=== PATIENT | female | born 1960 | race Caucasian/White ===

== ENCOUNTER 2017-08-30 09:18 | Outpatient (CLI) | payer BC ==
[2017-08-30] MEDS: CLINDAMYCIN 300 MG in APPROPRIATE DILUENT 1 EA IV (09:56)
== END 2017-08-30 10:30 | disposition home or self-care (01) ==
LOC: M INFU 09:18
DX: Z95.2 Presence of prosthetic heart valve (principal); Z88.0 Allergy status to penicillin; Z88.2 Allergy status to sulfonamides; Z88.8 Allergy status to other drugs, medicaments and biological substances; Z79.01 Long term (current) use of anticoagulants; Z79.899 Other long term (current) drug therapy
CPT/HCPCS: 96365

== ENCOUNTER 2017-09-18 07:23 | Outpatient (CLI) | payer BC ==
[2017-09-18] MEDS: CLINDAMYCIN 300 MG in APPROPRIATE DILUENT 1 EA IV (08:04)
== END 2017-09-18 08:45 | disposition home or self-care (01) ==
LOC: M INFU 07:23
DX: Z41.8 Encounter for other procedures for purposes other than remedying health state (principal); Z95.5 Presence of coronary angioplasty implant and graft; Z95.2 Presence of prosthetic heart valve; I10 Essential (primary) hypertension; G47.33 Obstructive sleep apnea (adult) (pediatric); Z87.891 Personal history of nicotine dependence; Z79.899 Other long term (current) drug therapy; Z79.01 Long term (current) use of anticoagulants; Z88.0 Allergy status to penicillin; Z88.2 Allergy status to sulfonamides; Z88.8 Allergy status to other drugs, medicaments and biological substances
CPT/HCPCS: 96365

== ENCOUNTER → 2019-06-16 | Outpatient (CLI) | payer BC ==
[~2019-06-16] MED LIST: ATOR1TAB19 PO; COUM1TAB17 PO; CYMB60CA3 PO; IBUP600T OR; MULT1TAB8 PO; TOPR25TA PO; TUMS500C OR; VITA100067 PO
[2019-06-16 14:22] LABS: BASO % 0.8 % (0.0-1.0); EOS # 0.4 10^3/uL (0.0-0.5); EOS % 7.6 % (0.0-3.0); HEMATOCRIT 33.9 % (36.0-47.0); HEMOGLOBIN 10.4 g/dl (12.0-15.5); LYMPH # 1.7 10^3/uL (1.5-5.0); MEAN CORPUSCULAR HEMOGLOBIN 29.1 pg (27.0-33.0); MEAN CORPUSCULAR HGB CONC 30.7 g/dl (32.0-36.5); MEAN CORPUSCULAR VOLUME 94.7 fl (80.0-96.0); MONO # 0.4 10^3/uL (0.0-0.8); MONO % 7.8 % (0.0-5.0); NEUTROPHILS # 2.5 10^3/uL (1.5-8.5); NEUTROPHILS % 49.6 % (36.0-66.0); PLATELET COUNT, AUTOMATED 308 10^3/uL (150-450); RED BLOOD COUNT 3.58 10^6/uL (4.00-5.40)
[2019-06-16 14:38] LABS: ALBUMIN 3.6 GM/DL (3.2-5.2); ALT/SGPT 19 U/L (12-78); BILIRUBIN,TOTAL 0.3 MG/DL (0.2-1.0); BLOOD UREA NITROGEN 22 MG/DL (7-18); CALCIUM LEVEL 9.2 MG/DL (8.5-10.1); CARBON DIOXIDE LEVEL 30 MEQ/L (21-32); CHLORIDE LEVEL 111 MEQ/L (98-107); CREATININE FOR GFR 0.71 MG/DL (0.55-1.30); FERRITIN 4 NG/ML (8-252); FREE T4 0.77 NG/DL (0.76-1.46); GLOMERULAR FILTRATION RATE > 60.0 (>51); GLUCOSE, FASTING 91 MG/DL (70-100); IRON (FE) 24 UG/DL (50-170); PERCENT SATURATION 5.8 % (13.2-45.0); POTASSIUM SERUM 4.9 MEQ/L (3.5-5.1); SODIUM LEVEL 144 MEQ/L (136-145); TOTAL 25(OH) VITAMIN D 39.9 NG/ML (30.0-100.0); TOTAL IRON BINDING CAPACITY 413 UG/DL (250-450); TOTAL PROTEIN 6.4 GM/DL (6.4-8.2)
[2019-06-16 15:23] LABS: ERYTHROCYTE SEDIMENTATION RATE 13 mm/hr (0-30)
[2019-06-16 15:50] LABS: VITAMIN B12 LEVEL 609 PG/ML (247-911)
[2019-06-18 00:06] LABS: Lyme Disease IgG/IgM Antibodie <0.91 ISR (0.00-0.90); Lyme Disease IgM Ab Quantitati <0.80 index (0.00-0.79)
== END ==
LOC: M SMT 09:20
PROVIDERS: ATTEND Family Medicine
DX: R53.83 Other fatigue (principal); Z98.84 Bariatric surgery status; M25.562 Pain in left knee

== ENCOUNTER 2019-06-30 07:55 | Outpatient (CLI) | payer BC ==
[2019-06-30] VITALS (7 sets, daily range): BP systolic 98–113; BP diastolic 54–70
[~2019-06-30] VITALS: Ht 160 cm; Wt 60.0 kg
[~2019-06-30 07:55] MED LIST changes: -IRON1TAB2 PO; -LEXA5TAB13 PO; -REQU5TAB PO
[2019-06-30] MEDS ORDERED: IRON SUCROSE 500 MG in NS 250 ML OVER 4 HRS IV ONE (08:30)
[2019-06-30] MEDS ORDERED: REQU5TAB PO (08:41)
[2019-06-30] MEDS ORDERED: LEXA5TAB13 PO (08:41)
[2019-06-30] MEDS ORDERED: IRON1TAB2 PO (08:41)
== END 2019-06-30 13:00 | disposition home or self-care (01) ==
LOC: M INFU 07:55
PROVIDERS: ATTEND Family Medicine
DX: D50.9 Iron deficiency anemia, unspecified (principal)
CPT/HCPCS: 96365; 96366; J1756

== ENCOUNTER → 2019-06-30 | Outpatient (REF) | payer BC ==
[~2019-06-30] MED LIST changes: +IRON1TAB2 PO; +LEXA5TAB13 PO; +REQU5TAB PO
== END ==
LOC: M SFHCLERA 15:31
PROVIDERS: ATTEND Physician Assistant
DX: M54.5 Low back pain (principal)

== ENCOUNTER → 2019-07-01 | Outpatient (REF) | payer BC ==
[~2019-07-01] MED LIST changes: +IRON1TAB2 PO; +LEXA5TAB13 PO; +REQU5TAB PO
== END ==
LOC: M LAB REF 16:45
PROVIDERS: ATTEND Family Medicine
DX: M54.5 Low back pain (principal)

== ENCOUNTER → 2019-09-25 | Outpatient (CLI) | payer BC ==
--- NOTE | 2019-09-25 10:43 | REP ---
CERVICAL SPINE SERIES: Eight views. HISTORY: Neck pain. Comparison CT images October 05, 2014. FINDINGS: There is straightening of the normal cervical lordosis. Discogenic spurring is seen along with disc space narrowing at the C4-5. C5-6 and C6-7 levels unchanged from the 2015 prior study. Flexion/extension lateral views show no subluxation or instability. Vertebral body heights are preserved. Prevertebral soft tissues are unremarkable. Oblique radiographs demonstrate uncovertebral spurring producing neural foraminal encroachment on the right at C5-6 and C6-7 and on the left at C5-6 and C6-7 as well. There are mild facet hypertrophy changes visible on the AP view in the mid cervical spine. Open-mouth odontoid view is unremarkable. A pacemaker is noted incidentally. IMPRESSION: Degenerative spondylosis changes with mild bilateral uncovertebral spurring producing foraminal encroachment. No acute abnormality. Electronically Signed by Junior Dominguez MD 09/25/2019 10:58 A
== END ==
LOC: M LRY 09:46
PROVIDERS: ATTEND Physician Assistant
DX: M48.02 Spinal stenosis, cervical region (principal); M25.78 Osteophyte, vertebrae; Z95.0 Presence of cardiac pacemaker

== ENCOUNTER 2020-05-20 17:33 | Inpatient (IN) | payer BC ==
[~2020-05-20] VITALS: Ht 160 cm; Wt 56.4 kg
[2020-05-20] MEDS ORDERED: ESTR0.1C5 (17:49)
[2020-05-20] MEDS ORDERED: SUCR1ORA2 PO (17:49)
[2020-05-20] MEDS ORDERED: BUPR150T3 PO (17:49)
[2020-05-20] MEDS ORDERED: OMEP-218 PO (17:49)
[2020-05-20] MEDS ORDERED: GABA-843 PO (17:49)
[2020-05-20 18:17] LABS: BASO % 0.7 % (0.0-1.0); EOS # 0.3 10^3/uL (0.0-0.5); EOS % 6.9 % (0.0-3.0); HEMATOCRIT 24.6 % (36.0-47.0); LYMPH # 1.6 10^3/uL (1.5-5.0); LYMPH % 34.9 % (24.0-44.0); MEAN CORPUSCULAR HEMOGLOBIN 21.5 pg (27.0-33.0); MEAN CORPUSCULAR HGB CONC 28.5 g/dl (32.0-36.5); MEAN CORPUSCULAR VOLUME 75.7 fl (80.0-96.0); MONO # 0.3 10^3/uL (0.0-0.8); MONO % 6.7 % (0.0-5.0); NEUTROPHILS # 2.3 10^3/uL (1.5-8.5); NEUTROPHILS % 50.6 % (36.0-66.0); PLATELET COUNT, AUTOMATED 343 10^3/uL (150-450); RED BLOOD COUNT 3.25 10^6/uL (4.00-5.40); WHITE BLOOD COUNT 4.5 10^3/uL (4.0-10.0)
[2020-05-20 18:27] LABS: INR 2.16; PROTHROMBIN TIME 24.6 SECONDS (12.5-14.3)
[2020-05-20 18:38] LABS: ALBUMIN 3.6 GM/DL (3.2-5.2); ALT/SGPT 22 U/L (12-78); BILIRUBIN,DIRECT < 0.1 MG/DL (0.0-0.2); BILIRUBIN,TOTAL 0.2 MG/DL (0.2-1.0); LIPASE 115 U/L (73-393); TOTAL PROTEIN 6.3 GM/DL (6.4-8.2)
[2020-05-20] MEDS: GASTROGRAFIN SOLUTION 30ML PO SCH ×2 (19:07→19:54)
[2020-05-20] MEDS ORDERED: SUPE5000 PO (20:07)
[2020-05-20] MEDS ORDERED: [UNRECOGNIZED DRUG - CODE] PO (20:07)
[2020-05-20] MEDS ORDERED: CYAN500T3 PO (20:07)
[2020-05-20] MEDS ORDERED: VIAC1CHW PO (20:07)
[2020-05-20] MEDS ORDERED: WARF4TAB52 PO (20:09)
[2020-05-20] MEDS ORDERED: WARF-22 PO (20:10)
[2020-05-20] MEDS ORDERED: WARF-23 PO (20:10)
[2020-05-20] MEDS ORDERED: ISOVUE-370 76% 100ML VIAL As Ordered ONE (20:19)
--- NOTE | 2020-05-20 20:53 | REPVR ---
PROCEDURE INFORMATION: Exam: CT Abdomen And Pelvis With Contrast Exam date and time: 05/20/2020 8:25 PM Age: 59 years old Clinical indication: Abdominal pain; Generalized; Additional info: Gen abd pain TECHNIQUE: Imaging protocol: Computed tomography of the abdomen and pelvis with intravenous contrast. Radiation optimization: All CT scans at this facility use at least one of these dose optimization techniques: automated exposure control; mA and/or kV adjustment per patient size (includes targeted exams where dose is matched to clinical indication); or iterative reconstruction. Contrast material: ISOVUE 370; Contrast volume: 100 ml; Contrast route: INTRAVENOUS (IV); COMPARISON: No relevant prior studies available. FINDINGS: Liver: There is a diffuse decrease in hepatic parenchymal density, consistent with steatosis. Gallbladder and bile ducts: There has been a cholecystectomy. Pancreas: Normal. No ductal dilation. Spleen: Normal. No splenomegaly. Adrenals: Normal. No mass. Kidneys and ureters: Normal. No hydronephrosis. Stomach and bowel: This patient is status post gastric bypass surgery. Appendix: No evidence of appendicitis. Intraperitoneal space: Unremarkable. No free air. No significant fluid collection. Vasculature: The aortoiliac vessels demonstrate mild atherosclerotic calcification. Lymph nodes: Unremarkable. No enlarged lymph nodes. Urinary bladder: Unremarkable as visualized. Reproductive: There has been a hysterectomy. Bones/joints: Shallow dextroscoliosis, possibly positional. Soft tissues: Unremarkable. IMPRESSION: 1. There is a diffuse decrease in hepatic parenchymal density, consistent with steatosis. 2. There has been a cholecystectomy. 3. This patient is status post gastric bypass surgery. 4. There has been a hysterectomy. 5. No acute findings. Electronically signed by: Miller Murray On 05/20/2020 20:53:06 PM
[2020-05-20] MEDS ORDERED: GABAPENTIN 300 MG CAP PO SCH (21:00)
[2020-05-20 22:59] VITALS: BP 94/56
[2020-05-20 23:05] VITALS: BP 98/62
[2020-05-20 23:20] VITALS: BP 98/69
[2020-05-20] MEDS ORDERED: WARFARIN SOD 4MG TAB PO ONE (23:45)
[2020-05-21] VITALS (8 sets, daily range): BP systolic 97–106; BP diastolic 54–67
[2020-05-21] MEDS: SUCRALFATE SUSP 1GM/10ML UD PO SCH ×6 (00:52→21:00)
[2020-05-21] MEDS: OMEPRAZOLE 20 MG CAP PO SCH ×2 (00:53→20:40)
[2020-05-21] MEDS: buPROPion **XL** TABLET 150MG (WELLBUTRIN XL) PO SCH ×2 (00:54→20:40)
[2020-05-21] MEDS: METOPROLOL SUCC *XL* 25MG TAB (TopROL *XL*) PO SCH ×2 (00:55→21:00)
[2020-05-21 01:12] LABS: IRON (FE) 12 UG/DL (50-170); PERCENT SATURATION 2.5 % (13.2-45.0); TOTAL IRON BINDING CAPACITY 479 UG/DL (250-450)
--- NOTE | 2020-05-21 02:03 | HPEPDOC ---
General Date of Admission May 20, 2020 at 22:48 Date of Service: May 20, 2020 Attending Physician: KRISTA MITCHELL DO Chief Complaint The patient is a 59-year-old female admitted with a reason for visit of Acute Anemia. History of Present Illness Pt is a 59 y/o female who presents to [facility] ER after being sent here by her PCP. Patient had routine labs done in her PCP office yesterday and was notified to report to the ER after her Hg was found to be 7.0. Pt presents with ligh theadedness. She also presents with left lower quadrant abd pain x 1 month but has gotten better. She states that the pain started out sharp and was intermittent and it goes away after a few mins on its own. She states that she has a hx of anemia and has had gastric bypass, intestinal obstruction s/p resection, and vasculitis. Denies CP, sob, fever, n/v/d, chills. 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 There is a diffuse decrease in hepatic parenchymal density, consistent with steatosis. 2. There has been a cholecystectomy. 3. This patient is status post gastric bypass surgery. 4. There has been a hysterectomy. 5. No acute findings. Home Medications Scheduled Biotin (Biotin) 5 Mg Tablet, 5,000 MCG PO DAILY, (Reported) Bupropion Hcl (Bupropion Xl) 150 Mg Tab.er.24h, 150 MG PO QHS, (Reported) Calcium Carb/Vitamin D3/Vit K1 (Viactiv 650 mg-12.5 Mcg Chew) 1 Each Tab.chew, 1 CHEW PO DAILY, (Reported) Cyanocobalamin (Vitamin B-12) (Vitamin B-12) 500 Mcg Tablet, 500 MCG PO DAILY, (Reported) Gabapentin (Gabapentin) 300 Mg Capsule, 300 MG PO QHS, (Reported) Iron/Vit C/Fructooligosacchard (Chewable Iron 30 mg Tablet) 1 Each Tab.chew, 3 CHW PO DAILY, (Reported) Metoprolol Succinate (Toprol Xl) 25 Mg Tab, 25 MG PO QHS, (Reported) Multivitamin (Multi-Vitamin Daily) 1 Tab Tab, 1 TAB PO DAILY, (Reported) Omeprazole (Omeprazole) 20 Mg Capsule.dr, 20 MG PO QHS, (Reported) Sucralfate (Sucralfate) 1 Gm/10 Ml Oral.susp, 10 ML PO ACHS, (Reported) Warfarin Sodium (Warfarin Sodium) 1 Mg Tablet, 12 MG PO 3XW, (Reported) TUES/THURS/SAT Warfarin Sodium (Warfarin Sodium) 10 Mg Tablet, 10 MG PO 4XWK, (Reported) SUN/SUN/SUN/SUN Warfarin Sodium (Warfarin Sodium) 5 Mg Tablet, 5 MG PO ONCE, (Reported) FOR ONE DOSE ON 05/20/20 Allergies Coded Allergies: Sulfa (Sulfonamide Antibiotics) (Verified Allergy, Severe, ANAPHYLAXIS, 05/20/20) Penicillins (Verified Allergy, Intermediate, HIVES, 05/20/20) cefazolin (Verified Allergy, Intermediate, blisters, 05/20/20) vancomycin (Verified Allergy, Intermediate, blisters, 05/20/20) promethazine (Verified Adverse Reaction, Intermediate, SESNSITIVE PER PATIENT, 05/20/20) ropinirole (Verified Adverse Reaction, Mild, vomiting, 05/20/20) A-FIB/CHADSVASC A-FIB History Current/History of A-Fib/PAF?: No Current PO Anticoag Therapy: Yes Review of Systems Constitutional: Reports: Weakness, Other (lightheaded); Denies: Chills, Fever, Malaise, Night Sweats ENT: Denies: Head Aches, Ear Pain Pulmonary: Denies: Cough Cardiovascular: Denies: Chest Pain, Palpitations Gastrointestinal: Reports: Abdominal Pain (Left lower abd pain x1 month but resolving now); Denies: Nausea, Vomiting Genitourinary: Denies: Dysuria, Frequency, Incontinence, Hematuria Endocrine: Denies: Polydipsia, Polyphagia, Polyuria Physical Examination General Exam: Positive: Alert, Cooperative, No Acute Distress ENT Exam: Positive: Atraumatic Neck Exam: Positive: Supple; Negative: JVD, thyromegaly, Lymphadenopathy Chest Exam: Positive: Clear to auscultation, Normal air movement; Negative: Rales, Rhonchi, Wheezing, Diminished Heart Exam: Positive: Rate Normal, Normal S1, Normal S2; Negative: Gallops, Murmurs, Rubs Telemetry: Positive: Sinus Abdomen Exam: Positive: Normal bowel sounds, Tenderness (mild tenderness in L lower quandrant) Extremity Exam: Negative: Clubbing, Cyanosis, Edema Skin Exam: Negative: Rash, Breakdown, Lesion Neuro Exam: Positive: Strength at 5/5 X4 ext Vital Signs Vital Signs Date Time Temp Pulse Resp B/P (MAP) Pulse Ox O2 Delivery O2 Flow Rate FiO2 05/21/20 01:29 97.9 61 18 102/54 97 Room Air Laboratory Data Labs 24H Laboratory Tests 2 05/20/20 18:04: Immature Granulocyte % (Auto) 0.2, Neutrophils (%) (Auto) 50.6, Lymphocytes (%) (Auto) 34.9, Monocytes (%) (Auto) 6.7H, Eosinophils (%) (Auto) 6.9H, Basophils (%) (Auto) 0.7, Neutrophils # (Auto) 2.3, Lymphocytes # (Auto) 1.6, Monocytes # (Auto) 0.3, Eosinophils # (Auto) 0.3, Basophils # (Auto) 0.0, Nucleated Red Blood Cells % (auto) 0.0, Prothrombin Time 24.6H, Prothromb Time International Ratio 2.16, Iron Level 12L, Total Iron Binding Capacity 479H, Transferrin % Saturation 2.5L, Total Bilirubin 0.2, Direct Bilirubin < 0.1, Aspartate Amino Transf (AST/SGOT) 18, Alanine Aminotransferase (ALT/SGPT) 22, Alkaline Phosphatase 107, Total Protein 6.3L, Albumin 3.6, Albumin/Globulin Ratio 1.3, Lipase 115 05/20/20 18:07: POC Glucose (Misc Panel) 90, POC Sodium (Misc Panel) 141, POC Potassium (Misc Panel) 4.0, POC Chloride (Misc Panel) 104, POC Total CO2 (Misc Panel) 25.0, POC Blood Urea Nitrogen (Misc Panel 19, POC Ionized Calcium (Misc Panel) 4.9, POC Creatinine (Misc Panel) 0.7, POC Hematocrit (Misc Panel) 25.0L CBC/BMP Laboratory Tests 05/20/20 18:04 Assessment/Plan Pt is a 59 y/o female who presents to [facility] ER after being sent here by her PCP. Patient had routine labs done in her PCP office yesterday and was notified to report to the ER after her Hg was found to be 7.0. Pt presents with lightheadedness. Admitted to obs for 1PRBC infusion and workup for anemia Plan / VTE VTE Prophylaxis Ordered?: Yes Plan Plan #Microcytic Anemia - likely Iron deficiency anemia - hx of gastric bypass and intestinal resection and vasculitis - CT abd/pelvis- wnl - iron panel pending - B12 and folate pending - Hg 7.0 on admission- 1 PRBC - last colo at 51y/o with poly removal and GI scheduled him for 5 year follow up- overdue - am team consider GI consult in am - H/H q6h - continue home iron - stool occult blood ordered pending #Restless leg syndrome - may be 2/2 to iron def anemia - continue iron - neurotin d/cd #Rheumatic fever and endocarditis s/p aortic valve placement - continue coumadin - PT INR monitoring #GERD - continue omeprazole #HTN - continue metoprolol DVT ppx: coumadin GI ppx: omeprazole Diet: 2g Na IVF: none. encourage PO intake Code: Full GME ATTESTATION GME ATTESTATION My faculty preceptor for this patient encounter was physically present during the encounter and was fully available. All aspects of the patient interview, examination, medical decision making process, and medical care plan development were reviewed and approved by the faculty preceptor. The faculty preceptor is aware and concurs with the plan as stated in the body of this note and will attest to such by his/her cosignature. Payton Alvarez DO May 21, 2020 02:03
[2020-05-21 07:01] LABS: HEMATOCRIT 27.9 % (36.0-47.0); HEMOGLOBIN 8.3 g/dl (12.0-15.5); MEAN CORPUSCULAR HEMOGLOBIN 22.7 pg (27.0-33.0); MEAN CORPUSCULAR HGB CONC 29.7 g/dl (32.0-36.5); MEAN CORPUSCULAR VOLUME 76.4 fl (80.0-96.0); PLATELET COUNT, AUTOMATED 286 10^3/uL (150-450); RED BLOOD COUNT 3.65 10^6/uL (4.00-5.40); WHITE BLOOD COUNT 4.6 10^3/uL (4.0-10.0)
[2020-05-21 07:19] LABS: BLOOD UREA NITROGEN 14 MG/DL (7-18); CALCIUM LEVEL 8.4 MG/DL (8.5-10.1); CARBON DIOXIDE LEVEL 29 MEQ/L (21-32); CHLORIDE LEVEL 112 MEQ/L (98-107); CREATININE FOR GFR 0.68 MG/DL (0.55-1.30); GLOMERULAR FILTRATION RATE > 60.0 (>51); GLUCOSE, FASTING 83 MG/DL (70-100); POTASSIUM SERUM 4.5 MEQ/L (3.5-5.1); SODIUM LEVEL 144 MEQ/L (136-145)
[2020-05-21 07:24] LABS: INR 1.97; PROTHROMBIN TIME 22.8 SECONDS (12.5-14.3)
[2020-05-21] MEDS: CYANOCOBALAMIN 500 MCG TAB PO SCH (08:25)
[2020-05-21] MEDS ORDERED: FLUBLOK(EGG FREE)(QUAD)INFLUENZA VACC 0.5ML SYRINGE 18YRS & OLDER IM ONE (09:00)
[2020-05-21 10:09] LABS: VITAMIN B12 LEVEL > 2000 PG/ML (247-911)
[2020-05-21 10:19] LABS: FOLATE 19.3 NG/ML (>5.4)
--- NOTE | 2020-05-21 11:09 | IPNPDOC ---
Text Note Date of Service The patient was seen on 05/21/20. NOTE Subjective: -No acute events overnight Interim vents: -s/p 1u pRBCs Objective: Vitals: see below General: Alert, Cooperative, No Acute Distress Eyes: pale conjunctiva, anicteric, PERRLA, EOMI ENT: Atraumatic, MMM Neck: Supple, no JVD, thyromegaly or palpated lymphadenopathy Chest: Clear to auscultation, Normal air movement Heart: Rate Normal, Normal S1, Normal S2, no mrg Abdomen: mild tenderness in L lower quadrant, normoactive sounds, soft Extremity: no Edema, WWP Skin: no rash, Breakdown, Lesions Neuro: Positive: Strength at 5/5 X4 ext Assessment: Pt is a 59 y/o female who presents to [facility] ER after being sent here by her PCP. Patient had routine labs done in her PCP office yesterday and was notified to report to the ER after her Hg was found to be 7.0. Pt presents with lightheadedness. Admitted to obs for 1PRBC infusion and workup for anemia Plan: #Microcytic Anemia - Iron deficiency anemia, will check ferritin for iron stores evaluation, smear and retic - hx of gastric bypass and intestinal resection and vasculitis --> f/u B12 and folate - CT abd/pelvis- wnl - low Iron, TIBC and saturation, just ordered ferritin, retic and smear - B12 and folate pending - Hg 7.0 on admission s/p 1 PRBC with appropriate rise - last colo at 51y/o with poly removal and GI scheduled him for 5 year follow up- overdue - hold off consulting GI without michelle evidence of GIB at this time, f/u FOBT - H/H QD - continue home ferrous sulfate. Likely to end up giving some IB iron while inpatient after I check ferritin iron stores - stool occult blood ordered pending #Restless leg syndrome - Likely 2/2 to iron def anemia - continue iron #Rheumatic fever and endocarditis s/p aortic valve placement, likely contributing to RBC destruction as well, will check smear - continue coumadin - PT INR monitoring #GERD - continue omeprazole #HTN - continue metoprolol DVT ppx: coumadin GI ppx: omeprazole Diet: 2g Na Code: Full VS,Fishbone, I+O VS, Fishbone, I+O Laboratory Tests 05/20/20 18:04 05/21/20 06:45 Vital Signs Date Time Temp Pulse Resp B/P (MAP) Pulse Ox O2 Delivery O2 Flow Rate FiO2 05/21/20 06:00 98.2 63 18 98/58 (71) 97 Room Air I&O- Last 24 Hours up to 6 AM 05/21/20 06:00 Intake Total 550 ml Balance 550 ml VIN NORRIS MD May 21, 2020 09:09
[2020-05-21 11:28] LABS: FERRITIN 3 NG/ML (8-252)
[2020-05-21] MEDS ORDERED: WARFARIN SOD 5MG TAB PO SCH (17:00)
[2020-05-22] MEDS ORDERED: diphenhydrAMINE 50MG/ML VIAL (J1200) IM ONE (00:15)
[2020-05-22] MEDS ORDERED: diphenhydrAMINE 25MG CAP PO ONE (01:30)
[2020-05-22 06:00] VITALS: BP 96/48
[2020-05-22] MEDS: CYANOCOBALAMIN 500 MCG TAB PO SCH (08:04)
[2020-05-22] MEDS: SUCRALFATE SUSP 1GM/10ML UD PO SCH ×2 (08:04→12:00)
[2020-05-22 08:42] LABS: BASO % 0.8 % (0.0-1.0); EOS # 0.4 10^3/uL (0.0-0.5); EOS % 8.1 % (0.0-3.0); HEMATOCRIT 29.4 % (36.0-47.0); HEMOGLOBIN 8.5 g/dl (12.0-15.5); LYMPH % 21.2 % (24.0-44.0); MEAN CORPUSCULAR HEMOGLOBIN 22.1 pg (27.0-33.0); MEAN CORPUSCULAR HGB CONC 28.9 g/dl (32.0-36.5); MEAN CORPUSCULAR VOLUME 76.4 fl (80.0-96.0); MONO # 0.4 10^3/uL (0.0-0.8); MONO % 7.9 % (0.0-5.0); NEUTROPHILS % 61.6 % (36.0-66.0); PLATELET COUNT, AUTOMATED 300 10^3/uL (150-450); RED BLOOD COUNT 3.85 10^6/uL (4.00-5.40); WHITE BLOOD COUNT 4.8 10^3/uL (4.0-10.0)
[2020-05-22 08:51] LABS: INR 1.61; PROTHROMBIN TIME 19.5 SECONDS (12.5-14.3)
[2020-05-22 09:00] LABS: BLOOD UREA NITROGEN 11 MG/DL (7-18); CALCIUM LEVEL 8.4 MG/DL (8.5-10.1); CARBON DIOXIDE LEVEL 29 MEQ/L (21-32); CHLORIDE LEVEL 111 MEQ/L (98-107); CREATININE FOR GFR 0.67 MG/DL (0.55-1.30); GLOMERULAR FILTRATION RATE > 60.0 (>51); GLUCOSE, FASTING 86 MG/DL (70-100); POTASSIUM SERUM 4.3 MEQ/L (3.5-5.1); SODIUM LEVEL 144 MEQ/L (136-145)
[2020-05-22] MEDS ORDERED: IRON SUCROSE 100MG 5ML VIAL (J1756 PER 1MG) IV ONE (09:45)
[2020-05-22] MEDS ORDERED: IRON SUCROSE 100 MG in NS 100 ML OVER 1 HR IV ONE (12:00)
--- NOTE | 2020-05-22 12:40 | DS.PDOC ---
Discharge Summary General Date of Admission May 20, 2020 at 22:48 Date of Discharge 05/22/2020 Attending Physician: VIN NORRIS MD Discharge Summary PROCEDURES PERFORMED DURING STAY: None ADMITTING DIAGNOSES: 1. Anemia DISCHARGE DIAGNOSES: 1. Profound iron deficiency anemia 2. History of rheumatic heart disease c/b aortic valve insufficiency s/p AVR on coumadin 3. History of 3rd degree HD s/p PPM 4. HTN COMPLICATIONS/CHIEF COMPLAINT: Acute Anemia. HISTORY OF PRESENT ILLNESS: 59 y/o W with a history of gastric bypass and a history of iron deficiency anemia, who presented to [facility] per PCP for anemia found on routine outpatient labs without any specific complaints. HOSPITAL COURSE: She presented HDS without acute complaints and was found to have a microcytic anemia to Hgb of 7. She received 1u pRBC with good response that remained stable. On anemia workup she was profoundly iron deficiency with a ferritiin of 3, so I gave her 1 dose of 100mg of Venofer for stores before restoring her PO iron. FOBT was negative, and B12 was wnl. She is now being discharged home on iron sulfate 325mg QD with PCP follow up, and I encouraged her to get her follow up colonoscopy that is overdue. DISCHARGE MEDICATIONS: Please see below. ALLERGIES: Please see below. PHYSICAL EXAMINATION ON DISCHARGE: VITAL SIGNS: Please see below. General: Alert, Cooperative, No Acute Distress Eyes: pale conjunctiva, anicteric, PERRLA, EOMI ENT: Atraumatic, MMM Neck: Supple, no JVD, thyromegaly or palpated lymphadenopathy Chest: Clear to auscultation, Normal air movement Heart: Rate Normal, Normal S1, Normal S2, no mrg Abdomen: mild tenderness in L lower quadrant, normoactive sounds, soft Extremity: no Edema, WWP Skin: no rash, Breakdown, Lesions Neuro: Positive: Strength at 5/5 X4 ext LABORATORY DATA: Please see below. IMAGING: CT A/P no contrast: IMPRESSION: 1. There is a diffuse decrease in hepatic parenchymal density, consistent with steatosis. 2. There has been a cholecystectomy. 3. This patient is status post gastric bypass surgery. 4. There has been a hysterectomy. 5. No acute findings. PROGNOSIS: Good ACTIVITY: As tolerated DIET: Regular DISCHARGE PLAN: Home with iron supplementation DISPOSITION: Home DISCHARGE INSTRUCTIONS: 1. Please take the iron supplementation and see your PCP within 7d ITEMS TO FOLLOWUP ON ON OUTPATIENT: 1. HADLEY DISCHARGE CONDITION: Stable TIME SPENT ON DISCHARGE: 34 minutes. Vital Signs/I&Os Vital Signs Date Time Temp Pulse Resp B/P (MAP) Pulse Ox O2 Delivery O2 Flow Rate FiO2 05/22/20 06:00 97.2 63 16 96/48 (64) 94 Room Air I&O- Last 24 Hours up to 6 AM 05/22/20 06:00 Intake Total 1220 ml Output Total 0 ml Balance 1220 ml Laboratory Data Labs 24H Laboratory Tests 2 05/22/20 08:25: Prothrombin Time 19.5H, Prothromb Time International Ratio 1.61, Anion Gap 4L, Glomerular Filtration Rate > 60.0, Calcium Level 8.4L 05/22/20 08:26: Immature Granulocyte % (Auto) 0.4, Neutrophils (%) (Auto) 61.6, Lymphocytes (%) (Auto) 21.2L, Monocytes (%) (Auto) 7.9H, Eosinophils (%) (Auto) 8.1H, Basophils (%) (Auto) 0.8, Neutrophils # (Auto) 3.0, Lymphocytes # (Auto) 1.0L, Monocytes # (Auto) 0.4, Eosinophils # (Auto) 0.4, Basophils # (Auto) 0.0, Nucleated Red Blood Cells % (auto) 0.0 CBC/BMP Laboratory Tests 05/22/20 08:25 05/22/20 08:26 Microbiology Microbiology 05/21/20 Stool Occult Blood (LEEANN) - Final, Complete Discharge Medications Scheduled Biotin (Biotin) 5 Mg Tablet, 5,000 MCG PO DAILY, (Reported) Bupropion Hcl (Bupropion Xl) 150 Mg Tab.er.24h, 150 MG PO QHS, (Reported) Calcium Carb/Vitamin D3/Vit K1 (Viactiv 650 mg-12.5 Mcg Chew) 1 Each Tab.chew, 1 CHEW PO DAILY, (Reported) Cyanocobalamin (Vitamin B-12) (Vitamin B-12) 500 Mcg Tablet, 500 MCG PO DAILY, (Reported) Gabapentin (Gabapentin) 300 Mg Capsule, 300 MG PO QHS, (Reported) Iron/Vit C/Fructooligosacchard (Chewable Iron 30 mg Tablet) 1 Each Tab.chew, 3 CHW PO DAILY, (Reported) Metoprolol Succinate (Toprol Xl) 25 Mg Tab, 25 MG PO QHS, (Reported) Multivitamin (Multi-Vitamin Daily) 1 Tab Tab, 1 TAB PO DAILY, (Reported) Omeprazole (Omeprazole) 20 Mg Capsule.dr, 20 MG PO QHS, (Reported) Sucralfate (Sucralfate) 1 Gm/10 Ml Oral.susp, 10 ML PO ACHS, (Reported) Warfarin Sodium (Warfarin Sodium) 1 Mg Tablet, 12 MG PO 3XW, (Reported) TUES/TH/SAT Warfarin Sodium (Warfarin Sodium) 10 Mg Tablet, 10 MG PO 4XWK, (Reported) SUN/SUN/SUN/SUN Warfarin Sodium (Warfarin Sodium) 5 Mg Tablet, 5 MG PO ONCE, (Reported) FOR ONE DOSE ON 05/20/20 Allergies Coded Allergies: Sulfa (Sulfonamide Antibiotics) (Verified Allergy, Severe, ANAPHYLAXIS, 05/20/20) Penicillins (Verified Allergy, Intermediate, HIVES, 05/20/20) cefazolin (Verified Allergy, Intermediate, blisters, 05/20/20) vancomycin (Verified Allergy, Intermediate, blisters, 05/20/20) promethazine (Verified Adverse Reaction, Intermediate, SESNSITIVE PER PATIENT, 05/20/20) ropinirole (Verified Adverse Reaction, Mild, vomiting, 05/20/20) VIN NORRIS MD May 22, 2020 12:40
[2020-05-22] MEDS ORDERED: IRON65TA2 PO (12:48)
[2020-05-22 12:53] VITALS: BP 103/59
[2020-05-22 14:00] VITALS: BP 100/61
[2020-05-22] MEDS ORDERED: WARFARIN SOD 4MG TAB PO SCH (17:00)
== END 2020-05-22 14:39 | disposition home or self-care (01) | DRG 663 ==
LOC: M ED 17:33 → M ED INP 22:48 → ENRESERV 23:35 → M MSPAV 05-21 00:02
PROVIDERS: ADMIT Internal Medicine; ATTEND Internal Medicine
PROC: 30233N1 Transfusion of Nonautologous Red Blood Cells into Peripheral Vein, Percutaneous Approach (ICD-10-PCS; principal; 2020-05-20)
DX: D50.9 Iron deficiency anemia, unspecified (principal); I10 Essential (primary) hypertension; G25.81 Restless legs syndrome; K21.9 Gastro-esophageal reflux disease without esophagitis; Z79.01 Long term (current) use of anticoagulants; Z79.899 Other long term (current) drug therapy; Z98.84 Bariatric surgery status; Z95.2 Presence of prosthetic heart valve; Z90.49 Acquired absence of other specified parts of digestive tract; Z88.0 Allergy status to penicillin; Z88.1 Allergy status to other antibiotic agents; Z88.2 Allergy status to sulfonamides; Z88.8 Allergy status to other drugs, medicaments and biological substances; Z95.0 Presence of cardiac pacemaker

== ENCOUNTER 2020-08-13 10:51 | Outpatient (CLI) | payer BC ==
[~2020-08-13] VITALS: Ht 160 cm; Wt 63.5 kg
[2020-08-13] VITALS (7 sets, daily range): BP systolic 109–124; BP diastolic 58–67
[~2020-08-13 10:51] MED LIST changes: +BUPR150T3 PO; +CYAN500T3 PO; +ESTR0.1C5; +GABA-843 PO; +IRON65TA2 PO; +OMEP-218 PO; +SUCR1ORA2 PO; +SUPE5000 PO; +VIAC1CHW PO; +WARF-22 PO; +WARF-23 PO; +WARF4TAB52 PO; +[UNRECOGNIZED DRUG - CODE] PO
[2020-08-13] MEDS ORDERED: IRON SUCROSE 500 MG in NS 250 ML OVER 4 HRS IV ONE (11:00)
== END 2020-08-13 16:05 | disposition home or self-care (01) ==
LOC: M INFU 10:51
PROVIDERS: ATTEND Family Medicine
DX: D50.9 Iron deficiency anemia, unspecified (principal); Z88.0 Allergy status to penicillin; Z88.1 Allergy status to other antibiotic agents; Z88.2 Allergy status to sulfonamides
CPT/HCPCS: 96365; 96366; J1756

== ENCOUNTER → 2020-09-15 | Outpatient (CLI) | payer BC ==
[~2020-09-15] MED LIST changes: -BUPR150T3 PO; +BUPR150T4 PO; +GABA-282 PO; -GABA-843 PO
== END ==
LOC: M LAB 10:53
PROVIDERS: ATTEND Internal Medicine Gastroenterology
DX: D50.9 Iron deficiency anemia, unspecified (principal)

== ENCOUNTER → 2020-09-15 | Outpatient (CLI) | payer BC ==
[2020-09-15 11:50] LABS: BASO # 0.1 10^3/uL (0.0-0.2); EOS # 0.5 10^3/uL (0.0-0.5); EOS % 8.6 % (0.0-3.0); HEMATOCRIT 38.9 % (36.0-47.0); HEMOGLOBIN 12.5 g/dl (12.0-15.5); LYMPH # 1.7 10^3/uL (1.5-5.0); LYMPH % 27.6 % (24.0-44.0); MEAN CORPUSCULAR HEMOGLOBIN 30.4 pg (27.0-33.0); MEAN CORPUSCULAR HGB CONC 32.1 g/dl (32.0-36.5); MEAN CORPUSCULAR VOLUME 94.6 fl (80.0-96.0); MONO # 0.4 10^3/uL (0.0-0.8); MONO % 6.5 % (0.0-5.0); NEUTROPHILS # 3.5 10^3/uL (1.5-8.5); NEUTROPHILS % 56.1 % (36.0-66.0); PLATELET COUNT, AUTOMATED 267 10^3/uL (150-450); RED BLOOD COUNT 4.11 10^6/uL (4.00-5.40); WHITE BLOOD COUNT 6.2 10^3/uL (4.0-10.0)
[2020-09-15 12:36] LABS: PERCENT SATURATION 19.6 % (13.2-45.0); TOTAL 25(OH) VITAMIN D 38.1 NG/ML (30.0-100.0)
== END ==
LOC: M LAB 10:55
PROVIDERS: ATTEND Family Medicine
DX: D50.9 Iron deficiency anemia, unspecified (principal); Z98.84 Bariatric surgery status

== ENCOUNTER → 2020-09-30 | Outpatient (CLI) | payer BC ==
[~2020-09-30] MED LIST changes: +ENOX40IN3 SC
== END ==
LOC: M LABSMTC 11:35
PROVIDERS: ATTEND Anesthesiology
DX: Z01.812 Encounter for preprocedural laboratory examination (principal); Z20.822 Contact with and (suspected) exposure to COVID-19

== ENCOUNTER 2020-10-05 10:14 | Day surgery (SDC) | payer BC ==
[~2020-10-05] VITALS: Ht 160 cm; Wt 56.7 kg
[~2020-10-05 10:14] MED LIST changes: +BUPR150T12 PO; -BUPR150T4 PO; +CLINDAMYCIN 600 MG in IV 1 EA IV ONE; +GENTAMICIN 60 MG in D5W 50 ML IV ONE; +NS 1,000 ML IV ONE
[2020-10-05 11:31] LABS: INR 1.99
[2020-10-05] MEDS ORDERED: LIDOCAINE 2% 100MG/5ML SDV (FOR ANES.) As Ordered ONE (13:00)
[2020-10-05] MEDS ORDERED: propofoL 200 MG/20 ML VIAL As Ordered ONE ×2 (13:00→13:38)
--- NOTE | 2020-10-05 13:09 | ROOR ---
Patient Name: Mary Travis Procedure Date: 10/05/2020 12:56 PM Date of : 1960 Age: 59 Room: [facility] Gender: Female Note Status: Finalized Procedure: Upper GI endoscopy Indications: Iron deficiency anemia, Status post Lisa-en-Y Providers: Keshav THORNE MD Referring MD: Carly BIRD DO Requesting Provider: Medicines: Monitored Anesthesia Care Complications: No immediate complications. Procedure: Pre-Anesthesia Assessment: - The heart rate, respiratory rate, oxygen saturations, blood pressure, adequacy of pulmonary ventilation, and response to care were monitored throughout the procedure. The Endoscope was introduced through the mouth, and advanced to the jejunum. The upper GI endoscopy was accomplished without difficulty. The patient tolerated the procedure well. Findings: The examined esophagus was normal. Evidence of a Lisa-en-Y gastrojejunostomy was found. The gastrojejunal anastomosis was characterized by healthy appearing mucosa. The exam of the stomach was otherwise normal. The examined jejunum was normal. Impression: - Normal esophagus. - Lisa-en-Y gastrojejunostomy with gastrojejunal anastomosis characterized by healthy appearing mucosa. - Normal examined jejunum. - No specimens collected. Recommendation: - Recommend an iron supplement. Procedure Code(s): --- Professional --- 22763, Esophagogastroduodenoscopy, flexible, transoral; diagnostic, including collection of specimen(s) by brushing or washing, when performed (separate procedure) Diagnosis Code(s): --- Professional --- Z98.0, Intestinal bypass and anastomosis status D50.9, Iron deficiency anemia, unspecified CPT copyright 2019 [employer]. All rights reserved. The codes documented in this report are preliminary and upon wire spring relay adjuster review may be revised to meet current compliance requirements. Keshav hTorne MD Keshav THORNE MD 10/05/2020 1:09:15 PM Electronically signed by Keshav THORNE MD Number of Addenda: 0 Note Initiated On: 10/05/2020 12:56 PM Estimated Blood Loss: Estimated blood loss: none.
--- NOTE | 2020-10-05 13:38 | ROOR ---
Patient Name: Mary Travis Procedure Date: 10/05/2020 12:56 PM Date of : 1960 Age: 59 Room: [facility] Gender: Female Note Status: Finalized Procedure: Colonoscopy Indications: Iron deficiency anemia Providers: Keshav THORNE MD Referring MD: Carly BIRD DO Requesting Provider: Medicines: Monitored Anesthesia Care Complications: No immediate complications. Procedure: Pre-Anesthesia Assessment: - The heart rate, respiratory rate, oxygen saturations, blood pressure, adequacy of pulmonary ventilation, and response to care were monitored throughout the procedure. The Colonoscope was introduced through the anus and advanced to the terminal ileum, with identification of the appendiceal orifice and IC valve. The colonoscopy was performed without difficulty. The patient tolerated the procedure well. The quality of the bowel preparation was good. Findings: The perianal and digital rectal examinations were normal. Skin tags were found on perianal exam. A localized area of granular mucosa was found at the ileocecal valve. Biopsies were taken with a cold forceps for histology. The exam was otherwise normal throughout the examined colon. Internal hemorrhoids were found during retroflexion. The hemorrhoids were moderate. Impression: - Perianal skin tags found on perianal exam. - 1 -2 cm granular mucosa at the ileocecal valve. Biopsied to r/o adenoma. - Internal hemorrhoids. - The colon is otherwise normal. Recommendation: - Telephone endoscopist for pathology results in 2 weeks. - Resume Coumadin (warfarin) at prior dose today. Procedure Code(s): --- Professional --- 89211, Colonoscopy, flexible; with biopsy, single or multiple Diagnosis Code(s): --- Professional --- D50.9, Iron deficiency anemia, unspecified K64.4, Residual hemorrhoidal skin tags K64.8, Other hemorrhoids K63.89, Other specified diseases of intestine CPT copyright 2019 [employer]. All rights reserved. The codes documented in this report are preliminary and upon lead atg developer review may be revised to meet current compliance requirements. Keshav Thorne MD Keshav THORNE MD 10/05/2020 1:38:22 PM Electronically signed by Keshav THORNE MD Number of Addenda: 0 Note Initiated On: 10/05/2020 12:56 PM Estimated Blood Loss: Estimated blood loss: none.
[2020-10-05 14:00] VITALS: BP 97/52
== END 2020-10-05 14:19 | disposition home or self-care (01) ==
LOC: M OPP 10:14
PROVIDERS: ATTEND Internal Medicine Gastroenterology
DX: K63.89 Other specified diseases of intestine (principal); K64.8 Other hemorrhoids; K64.4 Residual hemorrhoidal skin tags; D50.9 Iron deficiency anemia, unspecified; Z98.0 Intestinal bypass and anastomosis status; I48.91 Unspecified atrial fibrillation; G47.30 Sleep apnea, unspecified; Z95.0 Presence of cardiac pacemaker; Z79.01 Long term (current) use of anticoagulants; Z79.899 Other long term (current) drug therapy; Z88.0 Allergy status to penicillin; Z88.1 Allergy status to other antibiotic agents; Z88.2 Allergy status to sulfonamides; Z88.8 Allergy status to other drugs, medicaments and biological substances
CPT/HCPCS: 36415; 43235; 45380; 85610; 88305; J1580

== ENCOUNTER → 2021-04-28 | Outpatient (CLI) | payer BC ==
[~2021-04-28] MED LIST changes: -CLINDAMYCIN 600 MG in IV 1 EA IV ONE; -GENTAMICIN 60 MG in D5W 50 ML IV ONE; -NS 1,000 ML IV ONE
[2021-04-28 11:04] LABS: BASO # 0.1 10^3/uL (0.0-0.2); BASO % 1.2 % (0.0-1.0); EOS # 0.6 10^3/uL (0.0-0.5); EOS % 10.2 % (0.0-3.0); HEMOGLOBIN 9.7 g/dl (12.0-15.5); LYMPH # 1.5 10^3/uL (1.5-5.0); LYMPH % 25.7 % (24.0-44.0); MEAN CORPUSCULAR HEMOGLOBIN 26.9 pg (27.0-33.0); MEAN CORPUSCULAR HGB CONC 30.3 g/dl (32.0-36.5); MEAN CORPUSCULAR VOLUME 88.6 fl (80.0-96.0); MONO # 0.5 10^3/uL (0.0-0.8); MONO % 7.9 % (2.0-8.0); NEUTROPHILS # 3.1 10^3/uL (1.5-8.5); NEUTROPHILS % 54.6 % (36.0-66.0); PLATELET COUNT, AUTOMATED 347 10^3/uL (150-450); RED BLOOD COUNT 3.61 10^6/uL (4.00-5.40); WHITE BLOOD COUNT 5.7 10^3/uL (4.0-10.0)
[2021-04-28 15:05] LABS: ALBUMIN 3.5 GM/DL (3.2-5.2); ALT/SGPT 21 U/L (12-78); BILIRUBIN,TOTAL 0.3 MG/DL (0.2-1.0); BLOOD UREA NITROGEN 17 MG/DL (7-18); CARBON DIOXIDE LEVEL 29 MEQ/L (21-32); CHLORIDE LEVEL 110 MEQ/L (98-107); CHOLESTEROL LEVEL 205 MG/DL (<200); CHOLESTEROL RISK RATIO 2.277 (<5); CREATININE FOR GFR 0.75 MG/DL (0.55-1.30); FERRITIN < 3 NG/ML (8-252); GLOMERULAR FILTRATION RATE > 60.0 (>51); GLUCOSE, FASTING 85 MG/DL (70-100); HDL CHOLESTEROL 90 MG/DL (>40); IRON (FE) 16 UG/DL (50-170); LDL CHOLESTEROL 98 MG/DL (<100); NON-HDL-C 115 MG/DL; PERCENT SATURATION 3.6 % (13.2-45.0); POTASSIUM SERUM 4.9 MEQ/L (3.5-5.1); SODIUM LEVEL 144 MEQ/L (136-145); TOTAL IRON BINDING CAPACITY 439 UG/DL (250-450); TOTAL PROTEIN 6.3 GM/DL (6.4-8.2); TRIGLYCERIDES LEVEL 84 MG/DL (<150)
[2021-04-28 15:07] LABS: FOLATE 17.7 NG/ML; TOTAL 25(OH) VITAMIN D 29.8 NG/ML (30.0-100.0)
[2021-04-28 15:16] LABS: VITAMIN B12 LEVEL 1139 PG/ML
== END ==
LOC: M LAB 10:42
PROVIDERS: ATTEND Physician Assistant
DX: Z98.84 Bariatric surgery status (principal)

== ENCOUNTER → 2021-04-28 | Outpatient (CLI) | payer BC ==
--- NOTE | 2021-04-28 09:43 | DEXAMM ---
INDICATION: SCR FOR OSTEOPOROSIS/Z13.820. COMPARISON: None. TECHNIQUE: Bone density was measured using dual-energy x-ray absorptionmetry (DEXA). FINDINGS: AP SPINE L1-L4 BMD 1.163 g/cm2 Young Adult T-Score -0.3 Age Matched Z-Score 0.9. LT FEMUR, TOTAL BMD 0.844 g/cm2 Young Adult T-Score -1.3 Age Matched Z-Score -0.4. LT NECK BMD 0.896 g/cm2 Young Adult T-Score -1.0 Age Matched Z-Score 0.2. RT FEMUR, TOTAL BMD 0.838 g/cm2 Young Adult T-Score -1.3 Age Matched Z-Score -0.5. RT NECK BMD 0.888 g/cm2 Young Adult T-Score -1.1 Age Matched Z-Score 0.1. IMPRESSION: There is normal bone density of the spine. There is low bone density of the left hip. There is low bone density of the right hip. FOLLOW-UP: Recommendation for the next bone density exam: 2-5 years. <Electronically signed by Sukumar Dominguez > 04/28/21 [id number]
--- NOTE | 2021-04-28 09:59 | REPMRS ---
Patient History The patient states she has not had a clinical breast exam in over a year. Family history of breast cancer at age 50 or over in mother, breast cancer at age 50 or over in maternal aunt, breast cancer at age 50 or over in maternal aunt, breast cancer at age 50 or over in paternal aunt, prostate cancer at age 50 or over in paternal uncle. Patient states she had gastric bypass surgery in 2016. No breast complaints today Patient signed the MRS sheet 1st covid vaccine 01/01/21-left arm-Pfizer 2nd covid vaccine 01/22/21-left arm Most recent mammos done @ [facility] Patient Identification Verified Digital Woman Screen Mammo: April 28, 2021 - Exam #: [id number] Bilateral CC and MLO view(s) were taken. Technologist: Marilyn Javier, Technologist Prior study comparison: September 13, 2017, bilateral digital mammo screening bilat, performed at [facility]. May 26, 2016, bilateral digital mammo screening bilat, performed at [facility]. June 24, 2013, digital woman screen mammo performed at [facility]. April 11, 2012, digital woman screen mammo performed at [facility]. FINDINGS: The breast tissue is heterogeneously dense. This may lower the sensitivity of mammography. Screening. Digital screening (2D) mammography was performed bilaterally in the CC and MLO projections. Additionally, breast tomosynthesis (3D mammography) was performed bilaterally in the CC and MLO projections. Todays exam was compared to the prior exam/exams. By history, the patient has no complaints of a palpable breast abnormality or other significant breast complaints. The Volpara volumetric breast density category is C, the breasts are heterogenously dense which may obscure small masses. The breasts are unchanged in size and shape. There are no laura-soft tissue densities or spiculated masses. There is no internal architectural distortion. There are no suspicious laura-calcific clusters. Skin thickening or nipple retraction is not present. There is again noted a pacemaker device in the left axilla. IMPRESSION: BI-RADS Category 2- Benign Findings. There is no evidence of malignant alteration of the breasts. Followup examination recommended in one year. This mammogram was read with the assistance of [employer],an FDA approved computer aided detection system for mammography. The lifetime Tyrer-Cuzick score is 17.5% Negative x-ray reports should not delay surgical consultation if a dominant or clinically suspicious mass is present. Not all breast cancers can be identified by mammography. Therefore, we recommend that you continue to perform regular breast self-examination and physical examination and then promptly contact your physician of any concerns or changes. Due to the density of the breasts, MRI/whole breast screening ultrasound is warranted. Adenosis and dense breasts may obscure an underlying neoplasm. No significant changes when compared with prior studies. Assessment: BI-RADS/ACR category 2 mammogram. Benign Findings. Recommendation Routine screening mammogram of both breasts in 1 year. Electronically Signed By: Leobardo Hernandez MD 04/28/21 [id number]
== END ==
LOC: M WHC 08:31
PROVIDERS: ATTEND Physician Assistant
DX: Z12.31 Encounter for screening mammogram for malignant neoplasm of breast (principal); Z13.820 Encounter for screening for osteoporosis; Z80.3 Family history of malignant neoplasm of breast; Z98.84 Bariatric surgery status; M85.89 Other specified disorders of bone density and structure, multiple sites

== ENCOUNTER → 2021-04-28 | Outpatient (CLI) | payer BC ==
[2021-04-28 10:56] LABS: HEMATOCRIT 31.8 % (36.0-47.0); HEMOGLOBIN 9.6 g/dl (12.0-15.5); MEAN CORPUSCULAR HEMOGLOBIN 26.8 pg (27.0-33.0); MEAN CORPUSCULAR HGB CONC 30.2 g/dl (32.0-36.5); MEAN CORPUSCULAR VOLUME 88.8 fl (80.0-96.0); PLATELET COUNT, AUTOMATED 342 10^3/uL (150-450); RED BLOOD COUNT 3.58 10^6/uL (4.00-5.40); WHITE BLOOD COUNT 5.6 10^3/uL (4.0-10.0)
[2021-04-28 11:26] LABS: ALBUMIN 3.5 GM/DL (3.2-5.2); ALT/SGPT 20 U/L (12-78); BILIRUBIN,TOTAL 0.2 MG/DL (0.2-1.0); BLOOD UREA NITROGEN 16 MG/DL (7-18); CALCIUM LEVEL 9.2 MG/DL (8.5-10.1); CARBON DIOXIDE LEVEL 30 MEQ/L (21-32); CHLORIDE LEVEL 109 MEQ/L (98-107); CHOLESTEROL LEVEL 201 MG/DL (<200); CHOLESTEROL RISK RATIO 2.208 (<5); CREATININE FOR GFR 0.76 MG/DL (0.55-1.30); GLOMERULAR FILTRATION RATE > 60.0 (>51); GLUCOSE, FASTING 85 MG/DL (70-100); HDL CHOLESTEROL 91 MG/DL (>40); LDL CHOLESTEROL 94 MG/DL (<100); NON-HDL-C 110 MG/DL; POTASSIUM SERUM 4.9 MEQ/L (3.5-5.1); SODIUM LEVEL 143 MEQ/L (136-145); TOTAL PROTEIN 6.2 GM/DL (6.4-8.2); TRIGLYCERIDES LEVEL 81 MG/DL (<150)
== END ==
LOC: M LAB 10:11
PROVIDERS: ATTEND Family Medicine
DX: I06.1 Rheumatic aortic insufficiency (principal); I05.1 Rheumatic mitral insufficiency; Z95.2 Presence of prosthetic heart valve; E78.2 Mixed hyperlipidemia

== ENCOUNTER 2021-05-26 12:40 | Outpatient (CLI) | payer BC ==
[~2021-05-26] VITALS: Ht 157.5 cm; Wt 55.5 kg
[2021-05-26 13:01] VITALS: BP 123/72
[2021-05-26] MEDS ORDERED: FERRIC CARBOXYMALTOSE INJ 750 MG, VIAL MATE ADAPTER 1 EACH in NS 250 ML IV ONE (13:30)
[2021-05-26 14:08] VITALS: BP 118/61
== END 2021-05-26 14:10 | disposition home or self-care (01) ==
LOC: M INFU 12:40
PROVIDERS: ATTEND Physician Assistant
DX: D50.9 Iron deficiency anemia, unspecified (principal); Z88.0 Allergy status to penicillin; Z88.2 Allergy status to sulfonamides; Z88.1 Allergy status to other antibiotic agents
CPT/HCPCS: 96365; J1439

== ENCOUNTER → 2021-05-26 | Outpatient (CLI) | payer BC ==
[~2021-05-26] MED LIST changes: -CYMB60CA3 PO; +CYMB60CA4 PO
== END ==
LOC: M RAD 12:42
PROVIDERS: ATTEND Physician Assistant
DX: R30.0 Dysuria (principal)

== ENCOUNTER 2021-06-02 12:56 | Outpatient (CLI) | payer BC ==
[~2021-06-02] VITALS: Ht 157.5 cm; Wt 55.5 kg
[2021-06-02 13:05] VITALS: BP 99/55
[2021-06-02] MEDS ORDERED: FERRIC CARBOXYMALTOSE INJ 750 MG, VIAL MATE ADAPTER 1 EACH in NS 250 ML IV ONE (13:30)
[2021-06-02 14:30] VITALS: BP 110/59
== END 2021-06-02 14:45 | disposition home or self-care (01) ==
LOC: M INFU 12:56
PROVIDERS: ATTEND Physician Assistant
DX: D50.9 Iron deficiency anemia, unspecified (principal); Z88.0 Allergy status to penicillin; Z88.1 Allergy status to other antibiotic agents; Z88.2 Allergy status to sulfonamides
CPT/HCPCS: 96365; J1439

== ENCOUNTER → 2021-06-13 | Outpatient (CLI) | payer BC ==
--- NOTE | 2021-06-13 11:08 | REP ---
INDICATION: RENAL COLIC. COMPARISON: Multiple the latest 05/20/2020 a contrast-enhanced exam TECHNIQUE: Standard helical technique without intravenous or oral bowel preparatory contrast administration. FINDINGS: The lung bases are clear and unchanged. The liver, spleen, pancreas, adrenal glands, and kidneys are essentially unchanged. There is a right renal cyst status quo. There is no significant change in appearance of the abdominal aorta or para-aortic regions. There is no significant change in appearance of the bowel loops or the mesenteries. Left upper quadrant postoperative changes status quo. Right lower quadrant postoperative changes status quo. There is no evidence of free fluid or free air. There are bilateral pelvic phleboliths status quo. There is no evidence of a mass or adenopathy. There is no significant change in appearance of the imaged osseous structures. IMPRESSION: No significant change compared to the prior exam other than technique. There is no evidence of acute disease. <Electronically signed by Bernabe Batres > 06/13/21 [id number]
== END ==
LOC: M RAD 09:22
PROVIDERS: ATTEND Family Medicine
DX: N23 Unspecified renal colic (principal)

== ENCOUNTER → 2021-06-15 | Outpatient (REF) | payer BC | LOC: M LAB REF 16:56 | PROVIDERS: ATTEND Family Medicine | DX: N23 Unspecified renal colic (principal) ==

== ENCOUNTER → 2022-11-30 | Outpatient (CLI) | payer OTHER ==
[~2022-11-30] MED LIST changes: +AMPH1TAB2; +GNP45TAB2 PO; +OMEP-173 PO; -OMEP-218 PO
[2022-11-30 19:36] LABS: BASO # 0.1 10^3/uL (0.0-0.2); EOS # 0.4 10^3/uL (0.0-0.5); EOS % 7.4 % (0.0-3.0); HEMATOCRIT 39.3 % (36.0-47.0); HEMOGLOBIN 12.5 g/dl (12.0-15.5); LYMPH # 1.5 10^3/uL (1.5-5.0); LYMPH % 28.6 % (24.0-44.0); MEAN CORPUSCULAR HEMOGLOBIN 32.6 pg (27.0-33.0); MEAN CORPUSCULAR HGB CONC 31.8 g/dl (32.0-36.5); MEAN CORPUSCULAR VOLUME 102.3 fl (80.0-96.0); MONO # 0.4 10^3/uL (0.0-0.8); MONO % 7.6 % (2.0-8.0); NEUTROPHILS # 2.8 10^3/uL (1.5-8.5); NEUTROPHILS % 55.2 % (36.0-66.0); PLATELET COUNT, AUTOMATED 275 10^3/uL (150-450); RED BLOOD COUNT 3.84 10^6/uL (4.00-5.40); WHITE BLOOD COUNT 5.1 10^3/uL (4.0-10.0)
[2022-11-30 19:44] LABS: ALBUMIN 3.7 G/DL (3.2-5.2); ALKALINE PHOSPHATASE 141 U/L (46-116); ALT/SGPT 18 U/L (7.0-40); AST/SGOT 24 U/L (<34); BILIRUBIN,TOTAL 0.3 MG/DL (0.3-1.2); BLOOD UREA NITROGEN 12 MG/DL (9-23); CALCIUM LEVEL 8.9 MG/DL (8.3-10.6); CARBON DIOXIDE LEVEL 30 MMOL/L (20-31); CHLORIDE LEVEL 109 MMOL/L (98-107); CREATININE FOR GFR 0.66 MG/DL (0.55-1.30); GLOMERULAR FILTRATION RATE > 60.0 (>45); GLUCOSE, FASTING 160 MG/DL (74-106); IRON (FE) 86 UG/DL (50-170); PERCENT SATURATION 26.7 % (13.2-45.0); POTASSIUM SERUM 4.3 MMOL/L (3.5-5.1); SODIUM LEVEL 142 MMOL/L (136-145); TOTAL IRON BINDING CAPACITY 322 UG/DL (250-425)
[2022-11-30 19:46] LABS: FERRITIN 122.4 NG/ML (7.3-270.7)
[2022-11-30 19:47] LABS: VITAMIN B12 LEVEL 152 PG/ML (211-911)
== END ==
LOC: M WUC 15:25
PROVIDERS: ATTEND Specialist
DX: D50.9 Iron deficiency anemia, unspecified (principal)

== ENCOUNTER → 2023-02-16 | Outpatient (CLI) | payer OTHER ==
[2023-02-16 16:47] LABS: CHOLESTEROL RISK RATIO 1.98 (<5); LDL CHOLESTEROL 67.6 MG/DL (<100)
== END ==
LOC: M WUC 13:52
PROVIDERS: ATTEND Physician Assistant
DX: E78.2 Mixed hyperlipidemia (principal)

== ENCOUNTER → 2023-02-16 | Outpatient (CLI) | payer OTHER ==
[2023-02-16 16:22] LABS: BASO % 0.8 % (0.0-1.0); EOS # 0.4 10^3/uL (0.0-0.5); EOS % 7.3 % (0.0-3.0); HEMOGLOBIN 12.3 g/dl (12.0-15.5); LYMPH # 1.3 10^3/uL (1.5-5.0); MEAN CORPUSCULAR HEMOGLOBIN 32.7 pg (27.0-33.0); MEAN CORPUSCULAR HGB CONC 32.4 g/dl (32.0-36.5); MEAN CORPUSCULAR VOLUME 101.1 fl (80.0-96.0); MONO # 0.4 10^3/uL (0.0-0.8); MONO % 7.9 % (2.0-8.0); NEUTROPHILS # 3.1 10^3/uL (1.5-8.5); NEUTROPHILS % 58.6 % (36.0-66.0); PLATELET COUNT, AUTOMATED 262 10^3/uL (150-450); RED BLOOD COUNT 3.76 10^6/uL (4.00-5.40); WHITE BLOOD COUNT 5.2 10^3/uL (4.0-10.0)
[2023-02-16 16:47] LABS: PERCENT SATURATION 19.2 % (13.2-45.0)
== END ==
LOC: M WUC 14:13
PROVIDERS: ATTEND Specialist
DX: D50.9 Iron deficiency anemia, unspecified (principal); E53.8 Deficiency of other specified B group vitamins

== ENCOUNTER → 2023-03-01 | Outpatient (REF) | payer OTHER | LOC: M LAB REF 16:57 | PROVIDERS: ATTEND Family Medicine | DX: N76.0 Acute vaginitis (principal) ==

== ENCOUNTER 2023-04-03 14:31 | Emergency (ER) | payer OTHER ==
[~2023-04-03] VITALS: Ht 160 cm; Wt 55.4 kg
[2023-04-03] MEDS ORDERED: SERT50TA29 PO (15:00)
[2023-04-03] MEDS ORDERED: WARF-60 PO (15:00)
[2023-04-03] MEDS ORDERED: WARF-20 PO (15:00)
[2023-04-03 15:12] LABS: BASO # 0.1 10^3/uL (0.0-0.2); BASO % 0.8 % (0.0-1.0); EOS # 0.4 10^3/uL (0.0-0.5); EOS % 6.3 % (0.0-3.0); HEMATOCRIT 38.2 % (36.0-47.0); HEMOGLOBIN 12.3 g/dl (12.0-15.5); LYMPH # 1.6 10^3/uL (1.5-5.0); MEAN CORPUSCULAR HGB CONC 32.2 g/dl (32.0-36.5); MEAN CORPUSCULAR VOLUME 99.5 fl (80.0-96.0); MONO # 0.4 10^3/uL (0.0-0.8); MONO % 6.8 % (2.0-8.0); NEUTROPHILS # 3.9 10^3/uL (1.5-8.5); NEUTROPHILS % 60.8 % (36.0-66.0); PLATELET COUNT, AUTOMATED 280 10^3/uL (150-450); RED BLOOD COUNT 3.84 10^6/uL (4.00-5.40); WHITE BLOOD COUNT 6.3 10^3/uL (4.0-10.0)
[2023-04-03 15:33] LABS: INR 2.92; PROTHROMBIN TIME 29.8 SECONDS (12.5-14.5)
[2023-04-03 15:34] LABS: PARTIAL THROMBOPLASTIN TIME 39.4 SECONDS (24.8-34.2)
[2023-04-03 15:52] LABS: ALBUMIN 3.6 G/DL (3.2-5.2); ALKALINE PHOSPHATASE 117 U/L (46-116); ALT/SGPT 19 U/L (7.0-40); AST/SGOT 18 U/L (<34); BILIRUBIN,DIRECT 0.1 MG/DL (<0.4); BILIRUBIN,TOTAL 0.3 MG/DL (0.3-1.2); BLOOD UREA NITROGEN 19 MG/DL (9-23); CARBON DIOXIDE LEVEL 28 MMOL/L (20-31); CHLORIDE LEVEL 110 MMOL/L (98-107); CK-MB VALUE MASS 1.5 NG/ML (<3.6); CPK CREATINE PHOSPHOKINASE 126 U/L (34-145); CREATININE FOR GFR 0.67 MG/DL (0.55-1.30); GLOMERULAR FILTRATION RATE > 60.0 (>45); GLUCOSE, FASTING 93 MG/DL (74-106); LIPASE 43 U/L (12-53); MB/CK RELATIVE INDEX 1.19 (< OR =4); POTASSIUM SERUM 4.5 MMOL/L (3.5-5.1); SODIUM LEVEL 141 MMOL/L (136-145)
[2023-04-03 17:09] VITALS: BP 104/67; TEMP 98.7; O2SAT 99
== END 2023-04-03 17:28 | disposition home or self-care (01) ==
LOC: M ED 14:31
DX: R00.2 Palpitations (principal); I49.9 Cardiac arrhythmia, unspecified; I10 Essential (primary) hypertension; G43.909 Migraine, unspecified, not intractable, without status migrainosus; Z88.0 Allergy status to penicillin; Z88.2 Allergy status to sulfonamides; Z88.1 Allergy status to other antibiotic agents; Z88.8 Allergy status to other drugs, medicaments and biological substances; Z95.0 Presence of cardiac pacemaker; G47.30 Sleep apnea, unspecified; F41.9 Anxiety disorder, unspecified; Z79.899 Other long term (current) drug therapy

== ENCOUNTER → 2023-05-08 | Day surgery (SDC) | payer OTHER ==
[~2023-05-08] VITALS: Ht 157.5 cm; Wt 54.2 kg
[~2023-05-08] MED LIST changes: +ACETAMINOPHEN 1000MG 100ML IV BAG As Ordered ONE; +AMIODARONE 150MG/3ML VIAL As Ordered ONE; -AMPH1TAB2; +AMPH1TAB2 PO; +BACITRACIN OINTMENT 30GM TUBE As Ordered ONE; +COLA100C5 PO; +ISOVUE-M 300 61% 15ML VIAL As Ordered ONE; +LIDOCAINE 1% MDV 20ML VIAL As Ordered ONE; +LIDOCAINE 1% SDV 30ML VIAL As Ordered ONE; +LIDOCAINE 2% 100MG/5ML SDV (FOR ANES.) As Ordered ONE; +LR 1,000 ML IV SCH; +MIDAZOLAM INJ 2MG/2ML VIAL As Ordered ONE; +ONDANSETRON 4MG 2ML VIAL As Ordered ONE; +RA M500C PO; +SERT50TA29 PO; +UNRESOLVED CLARIFICATION ENTRY XX SCH; +WARF-20 PO; +WARF-60 PO; +fentaNYL 100 MCG/2 ML INJECTION As Ordered ONE; +propofoL 200 MG/20 ML VIAL As Ordered ONE
[2023-05-08 12:18] LABS: INR 1.29; PROTHROMBIN TIME 15.7 SECONDS (12.5-14.5)
[2023-05-08 15:15] VITALS: BP 98/60; TEMP 97.4; O2SAT 98
== END | disposition home or self-care (01) ==
LOC: M SDC 11:09
PROVIDERS: ATTEND Internal Medicine Cardiovascular Disease
DX: Z45.010 Encounter for checking and testing of cardiac pacemaker pulse generator [battery] (principal); T82.111A Breakdown (mechanical) of cardiac pulse generator (battery), initial encounter; Y71.2 Prosthetic and other implants, materials and accessory cardiovascular devices associated with adverse incidents; I44.1 Atrioventricular block, second degree; R00.2 Palpitations; I38 Endocarditis, valve unspecified; I10 Essential (primary) hypertension; Z88.0 Allergy status to penicillin; Z88.1 Allergy status to other antibiotic agents; Z88.8 Allergy status to other drugs, medicaments and biological substances; Z79.899 Other long term (current) drug therapy; Z79.01 Long term (current) use of anticoagulants
CPT/HCPCS: 33228; 36415; 85610; C1785; J0131; J0697; J1100; J2250; J2405; J3010; Q9967

== ENCOUNTER 2023-05-11 09:27 | Outpatient (CLI) | payer OTHER ==
[~2023-05-11 09:27] MED LIST changes: -ACETAMINOPHEN 1000MG 100ML IV BAG As Ordered ONE; -AMIODARONE 150MG/3ML VIAL As Ordered ONE; -BACITRACIN OINTMENT 30GM TUBE As Ordered ONE; -ISOVUE-M 300 61% 15ML VIAL As Ordered ONE; -LIDOCAINE 1% MDV 20ML VIAL As Ordered ONE; -LIDOCAINE 1% SDV 30ML VIAL As Ordered ONE; -LIDOCAINE 2% 100MG/5ML SDV (FOR ANES.) As Ordered ONE; -LR 1,000 ML IV SCH; -MIDAZOLAM INJ 2MG/2ML VIAL As Ordered ONE; -ONDANSETRON 4MG 2ML VIAL As Ordered ONE; -UNRESOLVED CLARIFICATION ENTRY XX SCH; -fentaNYL 100 MCG/2 ML INJECTION As Ordered ONE; -propofoL 200 MG/20 ML VIAL As Ordered ONE
[2023-05-11 09:30] VITALS: BP 135/65; O2SAT 100
[2023-05-11] MEDS ORDERED: FERRIC CARBOXYMALTOSE INJ 750 MG in NS 250 ML (>50kg) IV ONE ×3 (09:50)
[2023-05-11 11:30] VITALS: BP 165/87; O2SAT 99
== END 2023-05-11 11:30 | disposition home or self-care (01) ==
LOC: M INFU 09:27
PROVIDERS: ATTEND Physician Assistant
DX: D50.9 Iron deficiency anemia, unspecified (principal); Z98.84 Bariatric surgery status; Z88.0 Allergy status to penicillin; Z88.2 Allergy status to sulfonamides; Z88.1 Allergy status to other antibiotic agents; Z88.8 Allergy status to other drugs, medicaments and biological substances
CPT/HCPCS: 96365; J1439

== ENCOUNTER 2023-05-18 11:35 | Outpatient (CLI) | payer OTHER ==
[2023-05-18 11:35] VITALS: BP 109/64; O2SAT 97
[2023-05-18] MEDS ORDERED: FERRIC CARBOXYMALTOSE INJ 750 MG in NS 250 ML (>50kg) IV ONE ×3 (12:00)
[2023-05-18 12:53] VITALS: BP 134/70; O2SAT 99
== END 2023-05-18 12:55 | disposition home or self-care (01) ==
LOC: M INFU 11:35
PROVIDERS: ATTEND Physician Assistant
DX: D50.9 Iron deficiency anemia, unspecified (principal); Z98.84 Bariatric surgery status; Z88.0 Allergy status to penicillin; Z88.2 Allergy status to sulfonamides; Z88.1 Allergy status to other antibiotic agents; Z88.8 Allergy status to other drugs, medicaments and biological substances
CPT/HCPCS: 96365; J1439

== ENCOUNTER → 2023-07-12 | Outpatient (CLI) | payer OTHER ==
[2023-07-12 17:25] LABS: BASO % 0.9 % (0.0-1.0); EOS # 0.3 10^3/uL (0.0-0.5); EOS % 6.9 % (0.0-3.0); HEMATOCRIT 30.9 % (36.0-47.0); HEMOGLOBIN 9.6 g/dl (12.0-15.5); LYMPH # 1.1 10^3/uL (1.5-5.0); LYMPH % 24.6 % (24.0-44.0); MEAN CORPUSCULAR HGB CONC 31.1 g/dl (32.0-36.5); MEAN CORPUSCULAR VOLUME 106.2 fl (80.0-96.0); MONO # 0.5 10^3/uL (0.0-0.8); MONO % 10.9 % (2.0-8.0); NEUTROPHILS # 2.5 10^3/uL (1.5-8.5); NEUTROPHILS % 56.5 % (36.0-66.0); PLATELET COUNT, AUTOMATED 353 10^3/uL (150-450); RED BLOOD COUNT 2.91 10^6/uL (4.00-5.40); WHITE BLOOD COUNT 4.5 10^3/uL (4.0-10.0)
[2023-07-12 17:42] LABS: INR 1.07; PROTHROMBIN TIME 13.6 SECONDS (12.5-14.5)
[2023-07-12 17:58] LABS: IRON (FE) 68 UG/DL (50-170)
[2023-07-12 17:59] LABS: ALBUMIN 3.4 G/DL (3.2-5.2); ALKALINE PHOSPHATASE 104 U/L (46-116); ALT/SGPT 45 U/L (7.0-40); AST/SGOT 34 U/L (<34); BILIRUBIN,TOTAL 0.2 MG/DL (0.3-1.2); BLOOD UREA NITROGEN 14 MG/DL (9-23); CARBON DIOXIDE LEVEL 30 MMOL/L (20-31); CHLORIDE LEVEL 109 MMOL/L (98-107); CREATININE FOR GFR 0.61 MG/DL (0.55-1.30); GLOMERULAR FILTRATION RATE > 60.0 (>45); GLUCOSE, FASTING 90 MG/DL (74-106); PERCENT SATURATION 27.1 % (13.2-45.0); POTASSIUM SERUM 4.7 MMOL/L (3.5-5.1); SODIUM LEVEL 143 MMOL/L (136-145); TOTAL IRON BINDING CAPACITY 251 UG/DL (250-425); TOTAL PROTEIN 5.5 G/DL (5.7-8.2)
[2023-07-12 18:01] LABS: FERRITIN 110.9 NG/ML (7.3-270.7)
== END ==
LOC: M WUC 15:03
PROVIDERS: ATTEND Physician Assistant
DX: D50.9 Iron deficiency anemia, unspecified (principal)

== ENCOUNTER 2023-08-03 07:37 | Day surgery (SDC) | payer OTHER ==
[~2023-08-03] VITALS: Ht 160 cm; Wt 54.4 kg
[~2023-08-03 07:37] MED LIST changes: +ENOX60IN3 SQ; +LIDOCAINE 2% 100MG/5ML SDV (FOR ANES.) As Ordered ONE; +NS 1,000 ML IV ONE; +propofoL 200 MG/20 ML VIAL As Ordered ONE
[2023-08-03] MEDS ORDERED: LOVE0.4I2 SC (07:59)
[2023-08-03] MEDS ORDERED: ceFAZolin SOD 1 GM in D5W MINI-BAG PLUS 50 ML IV ONE (08:00)
[2023-08-03] MEDS ORDERED: propofoL 200 MG/20 ML VIAL As Ordered ONE (09:14)
[2023-08-03] MEDS ORDERED: GLUCAGON INJ 1MG VIAL As Ordered ONE (09:19)
[2023-08-03 09:35] VITALS: TEMP 96.1
[2023-08-03 09:50] VITALS: BP 96/53; O2SAT 100
== END 2023-08-03 10:10 | disposition home or self-care (01) ==
LOC: M OPP 07:37
PROVIDERS: ATTEND Internal Medicine Gastroenterology
DX: D62 Acute posthemorrhagic anemia (principal); K55.20 Angiodysplasia of colon without hemorrhage; K92.1 Melena; K92.2 Gastrointestinal hemorrhage, unspecified; K64.8 Other hemorrhoids; Q43.8 Other specified congenital malformations of intestine; G47.30 Sleep apnea, unspecified; Z79.1 Long term (current) use of non-steroidal anti-inflammatories (NSAID); Z79.899 Other long term (current) drug therapy; Z88.0 Allergy status to penicillin; Z88.1 Allergy status to other antibiotic agents; Z88.2 Allergy status to sulfonamides; Z88.8 Allergy status to other drugs, medicaments and biological substances; Z95.0 Presence of cardiac pacemaker
CPT/HCPCS: 45382; J0690; J1610

== ENCOUNTER → 2023-12-28 | Outpatient (CLI) | payer OTHER ==
[~2023-12-28] MED LIST changes: -LIDOCAINE 2% 100MG/5ML SDV (FOR ANES.) As Ordered ONE; +LOVE0.4I2 SC; -NS 1,000 ML IV ONE; -propofoL 200 MG/20 ML VIAL As Ordered ONE
[2023-12-28 16:53] LABS: BASO # 0.1 10^3/uL (0.0-0.2); BASO % 0.8 % (0.0-1.0); EOS # 0.2 10^3/uL (0.0-0.5); EOS % 3.3 % (0.0-3.0); HEMATOCRIT 36.3 % (36.0-47.0); HEMOGLOBIN 11.9 g/dl (12.0-15.5); LYMPH # 1.4 10^3/uL (1.5-5.0); LYMPH % 22.7 % (24.0-44.0); MEAN CORPUSCULAR HGB CONC 32.8 g/dl (32.0-36.5); MEAN CORPUSCULAR VOLUME 97.6 fl (80.0-96.0); MONO # 0.4 10^3/uL (0.0-0.8); PLATELET COUNT, AUTOMATED 289 10^3/uL (150-450); RED BLOOD COUNT 3.72 10^6/uL (4.00-5.40)
[2023-12-28 17:18] LABS: ALBUMIN 3.6 G/DL (3.2-5.2); ALKALINE PHOSPHATASE 110 U/L (46-116); ALT/SGPT 16 U/L (7.0-40); AST/SGOT 20 U/L (<34); BILIRUBIN,TOTAL 0.3 MG/DL (0.3-1.2); BLOOD UREA NITROGEN 18 MG/DL (9-23); CARBON DIOXIDE LEVEL 27 MMOL/L (20-31); CHLORIDE LEVEL 112 MMOL/L (98-107); CREATININE FOR GFR 0.63 MG/DL (0.55-1.30); GLOMERULAR FILTRATION RATE > 60.0 (>45); GLUCOSE, FASTING 95 MG/DL (74-106); IRON (FE) 31 UG/DL (50-170); PERCENT SATURATION 7.7 % (13.2-45.0); POTASSIUM SERUM 4.4 MMOL/L (3.5-5.1); SODIUM LEVEL 143 MMOL/L (136-145); TOTAL IRON BINDING CAPACITY 403 UG/DL (250-425)
[2023-12-28 17:21] LABS: FERRITIN 5.8 NG/ML (7.3-270.7); FREE T4 0.83 NG/DL (0.89-1.76); THYROID STIMULATING HORMONE 1.676 uIU/ML (0.55-4.78)
[2023-12-28 17:22] LABS: FOLATE 14.1 NG/ML (>5.4); VITAMIN B12 LEVEL 363 PG/ML (211-911)
[2023-12-28 17:23] LABS: INR 1.89; PROTHROMBIN TIME 21.1 SECONDS (12.5-14.5)
== END ==
LOC: M WUC 14:53
PROVIDERS: ATTEND Physician Assistant
DX: K92.2 Gastrointestinal hemorrhage, unspecified (principal); R53.83 Other fatigue

== ENCOUNTER 2024-02-15 12:25 | Outpatient (CLI) | payer OTHER ==
[~2024-02-15] VITALS: Ht 160 cm; Wt 56.8 kg
[2024-02-15 12:40] VITALS: BP 116/66; O2SAT 99
[2024-02-15] MEDS: FERRIC CARBOXYMALTOSE INJ 750 MG in NS 250 ML (>50kg) IV ONE (13:16)
[2024-02-15 14:23] VITALS: BP 120/71; O2SAT 97
== END 2024-02-15 14:25 ==
LOC: M INFU 12:25
PROVIDERS: ATTEND Family Medicine
DX: D50.9 Iron deficiency anemia, unspecified (principal); Z88.0 Allergy status to penicillin; Z88.2 Allergy status to sulfonamides; Z88.1 Allergy status to other antibiotic agents; Z88.8 Allergy status to other drugs, medicaments and biological substances
CPT/HCPCS: 96365; J1439

== ENCOUNTER 2024-02-22 13:10 | Outpatient (CLI) | payer OTHER ==
[~2024-02-22] VITALS: Ht 160 cm; Wt 56.8 kg
[2024-02-22 13:15] VITALS: BP 131/71; O2SAT 99
[2024-02-22] MEDS: FERRIC CARBOXYMALTOSE INJ 750 MG in NS 250 ML (>50kg) IV ONE (13:20)
[2024-02-22 14:03] VITALS: BP 121/64; O2SAT 99
== END 2024-02-22 14:05 ==
LOC: M INFU 13:10
PROVIDERS: ATTEND Family Medicine
DX: D50.9 Iron deficiency anemia, unspecified (principal); Z88.0 Allergy status to penicillin; Z88.1 Allergy status to other antibiotic agents; Z88.2 Allergy status to sulfonamides; Z88.8 Allergy status to other drugs, medicaments and biological substances
CPT/HCPCS: 96365; J1439